=== PATIENT | female | born 1980 | race Caucasian/White ===

== ENCOUNTER 2020-11-09 12:27 | Emergency (ER) | payer OTHER ==
[~2020-11-09] VITALS: Ht 167.6 cm; Wt 115.9 kg
--- NOTE | 2020-11-09 15:41 | NUR ---
RELIEVING RN FOR BREAK, PT IS RESTING QUIETLY ON BED, C/O ANXIETY ATTACK YESTERDAY AND TODAY, USUALLY CONTROLLED WITH BREATHING, ESSENTIAL OILS ETC. 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 TALKED WITH PT ABOUT STARTING EXERCISE PROGRAM, STAYING HYDRATED AND NOT DRINKING ENERGY DRINKS, WAITING TO BE EVALUATED
[2020-11-09] MEDS ORDERED: LORazepam 1 MG tablet PO ONE (16:20)
[2020-11-09] MEDS ORDERED: ondansetron 4mg rapidly disintigrating tab PO ONE (16:20)
[2020-11-09] MEDS ORDERED: ketorolac tromethamine 15mg/ml inj. IM ONE (16:20)
[2020-11-09] MEDS ORDERED: LISI10TA27 PO (16:57)
[2020-11-09 17:21] LABS: BASOPHILS % (AUTO) 0.3 % (0-1); MEAN CORPUSCULAR HEMOGLOBIN 19.2 PG (27.0-31.0); MEAN CORPUSCULAR HGB CONC 30.4 g/dL (33.0-36.5); MEAN CORPUSCULAR VOLUME 63.1 FL (78-98)
[2020-11-09 17:23] LABS: EOSINOPHILS % (AUTO) 0.1 % (0-6); HEMATOCRIT 32.9 % (35.0-45.0); LYMPHOCYTES # (AUTO) 0.7 X10'3 (1.1-4.8); MEAN PLATELET VOLUME 8.6 FL (7.4-10.4); MONOCYTES # (AUTO) 0.2 X10'3 (0-0.9); MONOCYTES % (AUTO) 1.4 % (2-12); NEUTROPHILS # (AUTO) 11.3 X10'3 (1.8-7.7); NEUTROPHILS % (AUTO) 92.2 % (42-75); PLATELET COUNT 453 X10'3 (140-440); RED BLOOD COUNT 5.21 X10'6 (4.20-5.60); RED CELL DISTRIBUTION WIDTH 18.2 % (11.5-14.5); WHITE BLOOD COUNT 12.2 X10'3 (4.5-11.0)
--- NOTE | 2020-11-09 17:37 | NUR ---
RELIEVING RN FOR BREAK, PT IS RESTING QUIETLY IN DARK ROOM, WAITING FOR LAB RESULTS, ABLE TO JAVIER SIPPING WATER, NO VOMITING
[2020-11-09 17:39] LABS: ALANINE AMINOTRANSFERASE 20 U/L (12-78); ALBUMIN 4.2 G/DL (3.4-5.0); ALBUMIN/GLOBULIN RATIO 0.9 (1.1-1.5); ALKALINE PHOSPHATASE 100 IU/L (46-116); ANION GAP 13 (8-16); ASPARTATE AMINO TRANSFERASE 19 U/L (10-37); BILIRUBIN,TOTAL 0.3 MG/DL (0.1-1.0); BLOOD UREA NITROGEN 11 MG/DL (7-18); CHLORIDE 104 MMOL/L (99-107); GLUCOSE 110 MG/DL (70-104); POTASSIUM 3.2 MMOL/L (3.5-5.1); SODIUM 141 MMOL/L (135-145); TOTAL PROTEIN 8.9 G/DL (6.4-8.2); eGFR 61 ML/MIN
[2020-11-09 17:51] LABS: ANISOCYTOSIS 2+; HYPOCHROMASIA 1+; MICROCYTOSIS 2+; PLATELET ESTIMATE INCREASED
[2020-11-09] MEDS ORDERED: CYCL-394 PO (17:57)
[2020-11-09] MEDS ORDERED: POTASSIUM BICARB 20meq eff tab 20 MEQ TABLET.EFF PO ONE (18:00)
[2020-11-09 18:19] VITALS: BP 172/100
== END 2020-11-09 18:23 | disposition home or self-care (01) ==
LOC: ER 12:28
DX: F41.9 Anxiety disorder, unspecified (principal); I10 Essential (primary) hypertension; R19.7 Diarrhea, unspecified; E87.6 Hypokalemia; R11.0 Nausea; F12.90 Cannabis use, unspecified, uncomplicated; Z79.899 Other long term (current) drug therapy
CPT/HCPCS: 36415; 80053; 85008; 85025; 96372; 99285; J1885

== ENCOUNTER 2025-06-19 06:01 | Emergency (ER) | payer OTHER ==
[~2025-06-19] VITALS: Ht 167.6 cm; Wt 113.9 kg
[~2025-06-19 06:01] MED LIST: LISI10TA27 PO
--- NOTE | 2025-06-19 06:27 | ELECTROCARDIOGRAPH REPORT ---
[facility] Test Date: 2025-06-19 Test Time: 06:14:57 Pat Name: SIDDHARTH EMMANUEL Department: EMERGENCY ROOM [id number] Room: Gender: F Courtroom Reporter: SNEHAL : 1980 Requested By: PEMA SARKAR Order Number: [id number] Reading MD: Dr. Lázaro Laughlin Measurements Intervals [place] Rate: 157 P: 17 [place]: 75 QRS: 51 QRSD: 93 T: -28 QT: 265 QTc: 429 Interpretive Statements Sinus tachycardia Atrial premature complex Borderline repolarization abnormality Baseline wander in lead(s) II,aVR,V6 Electronically Signed On 06-19-2025 7:27:[address] Lázaro Laughlin Please click the below link to view image of tracing.
[2025-06-19 06:46] LABS: MEAN PLATELET VOLUME 8.4 FL (7.4-10.4); RED CELL DISTRIBUTION WIDTH 20.7 % (11.5-14.5)
--- NOTE | 2025-06-19 06:55 | Physician Documentation ---
History of Present Illness General Chief Complaint: Abdominal Pain Stated Complaint: RIGHT SIDED ABD PAIN Time Seen by MD: 06:52 Mode of Arrival: Ambulatory History of Present Illness Initial Comments The patient is a 44-year-old female presents to the emergency room with a complaint of abdominal pain. The patient states that she developed illness on Thursday and felt weak and extremely tired, over the next 2-3 days she developed worsening abdominal pain and intermittent diarrhea. Patient states she has had subjective fevers. Patient currently denies any nausea. She states her pain is 3/10 and predominantly in the right lower quadrant. She states it hurts when she ambulates. The patient states her appendix is still in. She denies any h istory of diverticulitis. Patient denies any significant medical problems. Medication Reconciliation Allergies: Coded Allergies: No Known Allergies (Unverified , 11/09/20) Scheduled Lisinopril (Lisinopril), 1 TAB PO DAILY Past Medical History Past Medical History: No Pertinent History, Anxiety Drug Use: marijuana Lives In: Home Occupation: employed Review of Systems All Other Systems at this time: Reviewed and Negative Physical Exam Physical Exam Vital Signs: Temperature: 100.0, Source: Oral, Heart Rate: 140, Respiratory Rate: 19, BP: 127/107, Pulse Oximetry: 97, Weight: 113.910 Oxygen Flow Rate: 0 Physical Exam VITALS: Reviewed and as above. GENERAL: Alert, no apparent distress. HEENT: Normocephalic, atraumatic, PERRL, EOMI, dry mucosa, no erythema RESPIRATORY: Lungs clear, normal breath sounds, no respiratory distress. CHEST: No accessory muscle use, no retractions CV: Tachycardia, rhythm, no edema, no murmur, No: JVD GI: Soft, tender right lower quadrant with voluntary guarding no rebound, involuntary guarding, or rigidity BACK: No CVA tenderness, or swelling MUSCULOSKELETAL: No deformities, no edema SKIN: Warm and dry, no rash NEURO: Oriented x4, No motor or sensory deficit PSYCH: Normal mood and affect, no agitation Progress Results/Orders Results/Orders Orders - OHLPEMA RAMAN MD Stat Ekg (06/19/25 06:13) Covid19 Binax Poc Result Entry (06/19/25 06:53) Ct Abdomen Pelvis (06/19/25 08:30) Ultrasound Pelvis W/Orwo Dplx (06/19/25 08:41) Completed Orders - OHLFS,PEMA Estrada MD Stat Ekg (06/19/25 06:13) Normal Saline 1000ml (0.9% Sodium Chlori (06/19/25 06:50) Ceftriaxone 2gm/D5w 50ml Bag (Rocephin 2 (06/19/25 08:00) Influenza Type A&B Rapid Test (06/19/25 06:53) Piperacillin/Tazo 3.375gm/50ml (Zosyn 3. (06/19/25 07:15) Acetaminophen 1,000mg/100ml Iv (Ofirmev (06/19/25 07:15) Ct Abdomen Pelvis (06/19/25 08:30) Potassium Cl Sr Tablet (K-Dur Tablet) (06/19/25 07:20) Potassium Cl Sr Tablet (K-Dur Tablet) (06/19/25 07:20) Magnesium Cl Er Tablet (Slow-Mag Tablet) (06/19/25 07:20) Magnesium Sulf-Water 2g/50ml (Magnesium (06/19/25 07:20) Magnesium Sulf-Water 4g/100ml (Magnesium (06/19/25 07:20) Potassium Cl 40meq/1/2ns 520ml (Potassiu (06/19/25 07:20) K And/Or Mag Replacement (K And/Or Mag R (06/19/25 08:00) Ultrasound Pelvis W/Orwo Dplx (06/19/25 08:41) Probenecid Tablet (Probenecid Tablet) (06/19/25 13:00) Piperacillin/Tazo 3.375gm/50ml (Zosyn 3. (06/19/25 13:00) Normal Saline 1000ml (0.9% Sodium Chlori (06/19/25 14:05) Hydromorphone 1 Mg/Ml/Pf (Dilaudid Inj.) (06/19/25 14:05) Normal Saline 1000ml (0.9% Sodium Chlori (06/19/25 14:05) Simethicone Chew Tablet (Mylicon Chew Ta (06/19/25 15:35) Vital Signs 06/19/25 06/19/25 06/19/25 06/19/25 06:06 06:35 06:37 09:44 Temp 100.0 100.0 100.0 Pulse 157 140 113 Resp 19 15 B/P (MAP) 152/111 127/107 (114) 158/95 (116) Pulse Ox 96 97 95 O2 Flow Rate 0 0 0 06/19/25 06/19/25 06/19/25 06/19/25 14:00 14:10 15:54 18:48 Temp 100.0 Pulse 124 117 Resp 15 25 18 B/P (MAP) 169/107 (127) 164/97 (119) Pulse Ox 95 97 O2 Flow Rate 0 0 06/19/25 20:41 Temp 99.0 Pulse 130 B/P (MAP) Laboratory Tests Test 06/19/25 06:33 06/19/25 06:44 06/19/25 07:37 White Blood Count 32.2 *H Red Blood Count 5.73 H Hemoglobin 10.6 L Hematocrit 34.6 L Mean Corpuscular Volume 60.5 L Mean Corpuscular Hemoglobin 18.4 L Mean Corpuscular Hemoglobin Concent 30.5 L Red Cell Distribution Width 20.7 H Platelet Count 510 H Mean Platelet Volume 8.4 Neutrophils (%) (Auto) 92.7 H Lymphocytes (%) (Auto) 2.7 L Monocytes (%) (Auto) 4.3 Eosinophils (%) (Auto) 0 Basophils (%) (Auto) 0.3 Neutrophils # (Auto) 29.8 H Lymphocytes # (Auto) 0.9 L Monocytes # (Auto) 1.4 H Eosinophils # (Auto) 0.0 Basophils # (Auto) 0.1 CBC Comment Differential Total Cells Counted 100 Neutrophils % (Manual) 97.0 H Band Neutrophils % 1.0 Monocytes % (Manual) 2.0 Platelet Estimate Increased Large Platelets Moderate Giant Platelets Few Red Blood Cell Morphology Perf Basophilic Stippling Anisocytosis 3+ Microcytosis 2+ Elliptocytes Few Sodium Level 134 L Potassium Level 2.9 *L Chloride Level 99 Carbon Dioxide Level 21.3 L Anion Gap 14 Blood Urea Nitrogen 15 Creatinine 1.57 H Estimated GFR/1.73 m2 35 BUN/Creatinine Ratio 9.6 L Glucose Level 148 H Lactic Acid Level 1.9 Calcium Level 9.0 Magnesium Level 1.8 Total Bilirubin 1.3 H Aspartate Amino Transf (AST/SGOT) 23 Alanine Aminotransferase (ALT/SGPT) 25 Alkaline Phosphatase 121 H Total Protein 9.3 H Albumin 3.6 Globulin 5.7 H Albumin/Globulin Ratio 0.6 L Lipase 22 Procalcitonin 0.81 H Chemistry Comments Influenza Type A Antigen Negative Influenza Type B Antigen Negative SARS-CoV-2 Antigen (Rapid) Negative Urine Specimen Description Voided Urine Color Yellow Urine Clarity Cloudy Urine pH 6.0 Urine Specific [place] 1.020 Urine Protein 100 H Urine Glucose (UA) Negative Urine Ketones 40 H Urine Occult Blood Trace-intact Urine Nitrite Negative Urine Bilirubin Small Urine Urobilinogen 1.0 Urine Leukocyte Esterase Negative Urine RBC 0-2 Urine WBC 5-10 H Urine Squamous Epithelial Cells Few Urine Bacteria 1+ Urine Cellular Casts 5-10 Urine Hyaline Casts 10-30 Urine Coarse Granular Casts 10-30 Urine Culture Indicated Indicated Volume Urine Centrifuged 10 ml Urine HCG, Qualitative Negative Urine Comment Microbiology Date/Time Source Procedure Growth Status 06/19/25 08:17 Urine Voided Urine Culture - Preliminary Culture received. Resulted 06/19/25 06:34 Blood Arm Right Blood Culture - Preliminary NEGATIVE (LESS THAN 24 HOURS) Resulted EKG/XRAY/CT/US/VASC/MRI CT : Interpreted By: both CT: abdomen/pelvis With Contrast?: No Impression 12 cm right adnexal mass inseparable from the right lateral uterine wall. Differential includes a complex ovarian neoplasm with other possibilities such as infected or hemorrhagic ovarian cyst or necrotic fibroid not excluded. Recommend contrast-enhanced pelvic MRI or CT for further evaluation. Cholelithiasis. Diffuse hepatic steatosis. 1.2 cm indeterminate right adrenal nodule. Nonemergent adrenal MRI can provide definitive diagnosis. Ultrasound : Interpreted By: both Ultrasound of: pelvis Impression 8.0 cm right adnexal cyst, favor ovarian. Recommend pelvic MRI and OBGYN evaluation. IUD poorly seen and therefore location not be adequately assessed. Medical Decision Making Additional information obtaine: old records Findings The patient is 10 lead EKG demonstrates a sinus tachycardia rate of 157 with a normal axis and nonspecific ST-T abnormalities impression is a abnormal EKG time of interpretation was 0615. The patient's pulse oximetry was interpreted as normal and adequate. The patient's insurance sales manager was interpreted as a sinus tachycardia. The patient presented with fevers and abdominal pain patient was found to have a 11 cm cyst that has heterogeneous and has small septations. The patient had an ultrasound that showed flow to that ovary, patient states she has had one ovary removed presumably the left ovary for cysts in the past. The patient was given a dose of Zosyn here in the emergency room she is now given a 2nd dose [place] [address] she is continuing to have tachycardia she has been lead treated with 3 L of fluid. Attempts to transfer her locally been unsuccessful the patient has been discussed with Ryan Johnsonamento who has accepted the patient accepted the patient. The patient's CT imaging was reviewed by myself I have also reviewed the ultrasound imaging as well. And discussed the case with the consulting physician. Prior hospitalizations has been reviewed. The patient's insurance sales manager was interpreted as a sinus tachycardia Differential Diagnosis Appendicitis, diverticulitis, perforated viscus, torsion Departure Time of Disposition: 17:58 Disposition: 02 SHORT TERM HOSPITAL Impression: Primary Impression: Abdominal mass Qualified Codes: R19.03 - Right lower quadrant abdominal swelling, mass and lump Additional Impression: Sepsis Qualified Codes: A41.9 - Sepsis, unspecified organism Referrals: NO PRIMARY CARE PROVIDER (PCP) Signature Scribe Signature: no scribe Attestation: The note accurately reflects work and decisions made by me.Pema Chaudhary MD 06/20/25 06:40 PEMA CHAUDHARY MD Jun 19, 2025 06:55
[2025-06-19 07:03] LABS: CREATININE 1.57 MG/DL (0.40-0.90); TOTAL CARBON DIOXIDE 21.3 MMOL/L (24-32); eCRCL 42 ML/MIN; eGFR 35 ML/MIN
[2025-06-19] MEDS ORDERED: potassium Cl 20 mEq SR tablet PO PRN (07:20)
[2025-06-19] MEDS ORDERED: magnesium Cl slow-release 64mg tablet PO PRN (07:20)
[2025-06-19] MEDS ORDERED: magnesium sulf-water 4G/100mL 100 ML IV PRN (07:20)
[2025-06-19] MEDS ORDERED: magnesium sulf-water 2g/50mL 50 ML IV PRN (07:20)
[2025-06-19] MEDS: acetaminophen 1,000mg/100ml IV 100 ML IV ONE (07:39)
[2025-06-19 07:49] LABS: INFLUENZA TYPE A ANTIGEN RAPID NEGATIVE (Negative); INFLUENZA TYPE B ANTIGEN RAPID NEGATIVE (Negative)
[2025-06-19 07:53] LABS: LEUKOCYTE ESTERASE ,URINE NEGATIVE (Neg); NITRITES, URINE NEGATIVE (Neg); OCCULT BLOOD,URINE TRACE-INTACT (Neg)
[2025-06-19 07:54] LABS: URINE HCG NEGATIVE (NEG)
[2025-06-19] MEDS ORDERED: CefTRIAXone 2gm/D5W 50ml BAG 50 ML IV SCH (08:00)
[2025-06-19] MEDS: K and/or MAG REPLACEMENT MC SCH (08:00)
[2025-06-19] MEDS: piperacillin/tazo 3.375gm/50ml 50 ML IV ONE ×2 (08:02→13:34)
[2025-06-19 08:12] LABS: UA COLLECTION TYPE VOIDED
[2025-06-19 08:15] LABS: SQUAMOUS EPITHELIAL CELL,UR FEW /LPF (FEW)
[2025-06-19 08:25] LABS: BANDS% (MANUAL) 1.0 % (0-10); MONOCYTES % (MANUAL) 2.0 % (2-12); NEUTROPHILS % (MANUAL) 97.0 % (42-75); PLATELET ESTIMATE INCREASED
[2025-06-19 08:26] LABS: ELLIPTOCYTES FEW; GIANT PLATELET FEW; LARGE PLATELETS MODERATE
[2025-06-19] MEDS: potassium Cl 20 mEq SR tablet PO PRN (08:38)
[2025-06-19] MEDS: normal saline 1000ml 3,000 ML IV ONE (09:00)
--- NOTE | 2025-06-19 10:03 | RADIOLOGY REPORT ---
CLINICAL HISTORY: abd pain TECHNIQUE: Ultrasound examination of the female pelvis was performed transabdominally.. COMPARISON: None FINDINGS: The uterus measures 8.0 x 6.3 CM. The myometrial echotexture is homogenous. No focal myometrial abnormality is seen. An IUD is poorly seen. The ovaries are not seen. There is an 11.2 cm right adnexal cyst. No thick septations or mural nodularity is seen. Normal color doppler flow and vascular waveforms. There is no free fluid. IMPRESSION: 8.0 cm right adnexal cyst, favor ovarian. Recommend pelvic MRI and OBGYN evaluation. IUD poorly seen and therefore location not be adequately assessed.
--- NOTE | 2025-06-19 10:44 | RADIOLOGY REPORT ---
CLINICAL HISTORY: abd pain TECHNIQUE: CT of the abdomen and pelvis was performed without IV contrast. This exam was performed according to our departmental dose optimization program. Up-to-date CT equipment and radiation dose reduction techniques are utilized as appropriate. CTDI 36 DLP 1976 COMPARISON: None FINDINGS: Abdomen/Pelvis: The spleen, pancreas, left adrenal gland, kidneys, and bladder are grossly unremarkable. There is a 3.2 cm gallstone. There is diffuse hepatic steatosis. The 12 mm indeterminate right adrenal nodule. The uterus contains an IUD which appears centered at the mid ureters. There is a Complex 12.2 cm heterogeneous lesion at the right adnexa inseparable from the right lateral uterine wall. The abdominal aorta is normal in course and caliber. There are no significant atherosclerotic calcifications. There is no free intraperitoneal air or fluid. There is no enlarged abdominal pelvic lymph node. There is no bowel wall thickening or dilatation. There is [id number] sigmoid colon diverticulosis. Submucosal fat within the stomach compatible with prior gastritis. Other: The imaged lower thorax is unremarkable. No acute osseous abnormality is evident. Impression: 12 cm right adnexal mass inseparable from the right lateral uterine wall. Differential includes a complex ovarian neoplasm with other possibilities such as infected or hemorrhagic ovarian cyst or necrotic fibroid not excluded. Recommend contrast-enhanced pelvic MRI or CT for further evaluation. Cholelithiasis. Diffuse hepatic steatosis. 1.2 cm indeterminate right adrenal nodule. Nonemergent adrenal MRI can provide definitive diagnosis.
[2025-06-19] MEDS: probenecid 500mg tablet PO ONE (14:09)
[2025-06-19] MEDS: normal saline 1000ML IV soln IVB ONE ×2 (15:19→15:50)
[2025-06-19 15:54] VITALS: BP 164/97; O2SAT 97
[2025-06-19] MEDS: potassium Cl 40MEQ/1/2NS 520ml 520 ML IV PRN (16:57)
[2025-06-19 18:48] VITALS: RESP 18
[2025-06-19 20:41] VITALS: PULSE 130; TEMP 99
== END 2025-06-19 20:46 | disposition short-term general hospital (02) ==
LOC: ER 06:02
DX: R19.03 Right lower quadrant abdominal swelling, mass and lump (principal); A41.9 Sepsis, unspecified organism; F41.9 Anxiety disorder, unspecified; F12.90 Cannabis use, unspecified, uncomplicated; Z20.822 Contact with and (suspected) exposure to COVID-19; Z79.899 Other long term (current) drug therapy
CPT/HCPCS: 36415; 74176; 76856; 80053; 81001; 81025; 83605; 83690; 83735; 84145; 85007; 85025; 87040; 87088; 87804; 87811; 93005; 93976; 96361; 96365; 96366; 96368; 96375; 96376; 99285; J0131; J1171; J2543; J3480; J7030